=== PATIENT | male | born 1975 | race Caucasian/White ===

== ENCOUNTER → 2016-10-18 | Outpatient (CLI) | payer OTHER ==
--- NOTE | 2016-10-18 15:16 | RAD ---
Three-view cervical spine radiographs 10/18/2016 Clinical history: Neck pain which radiates down the left arm for several months. AP, lateral, swimmer's lateral and AP open mouth odontoid digital radiographs of the cervical spine were obtained. Minimal lateral curvature of the cervical spine is seen convex to the left. There is mild straightening of the normal cervical lordosis. Degenerative changes consisting of vertebral endplate sclerosis and minimal anterior and posterior vertebral body osteophyte formation are seen involving the C5-6 and C6-7 disc spaces. Mild disc space narrowing is seen at C5-C6. Mild degenerative changes are seen involving the uncovertebral and facet joints at these levels. No fracture or subluxation is seen. No prevertebral soft tissue swelling is noted. Impression: Mild degenerative changes are seen involving the lower cervical spine. No acute osseous abnormality is seen.
== END | disposition home or self-care (01) ==
LOC: DXRADRC 10:55
PROVIDERS: ATTEND Physician Assistant Medical
DX: M54.2 Cervicalgia (principal); M25.512 Pain in left shoulder
CPT/HCPCS: 72040

== ENCOUNTER → 2019-05-12 | Outpatient (CLI) | payer BC ==
[2019-05-12 09:29] LABS: BASO % 1 % (0-3); EOS # 0.2 x10^3/uL (0.0-0.7); EOS % 2 % (0-3); HEMATOCRIT 47.3 % (39.0-53.0); HEMOGLOBIN 16.1 g/dL (13.0-17.5); LYMPH # 1.4 x10^3/uL (1.0-4.8); LYMPH % 20 % (24-48); MEAN CORPUSCULAR HEMOGLOBIN 32 pg (25-35); MEAN CORPUSCULAR HGB CONC 34 g/dL (31-37); MEAN CORPUSCULAR VOLUME 95 fL (79-100); MONO # 0.5 x10^3/uL (0.0-1.1); MONO % 7 % (0-9); NEUT # 4.8 x10^3uL (1.8-7.7); NEUT % 70 % (31-73); PLATELET COUNT 243 x10^3/uL (140-400); RED CELL DISTRIBUTION WIDTH 13.9 % (11.5-14.5); WHITE BLOOD COUNT 6.9 x10^3/uL (4.0-11.0)
[2019-05-12 09:42] LABS: ALBUMIN 3.7 g/dL (3.4-5.0); CALCIUM 8.5 mg/dL (8.5-10.1); CREATININE 0.9 mg/dL (0.7-1.3); POTASSIUM 3.7 mmol/L (3.5-5.1); TOTAL BILIRUBIN 0.4 mg/dL (0.2-1.0); TOTAL PROTEIN 7.3 g/dL (6.4-8.2)
[2019-05-12 10:38] LABS: BACTERIA,URINE 0 /HPF (0-FEW); BILIRUBIN,URINE NEG (NEG); CLARITY,URINE HAZY; COLOR,URINE YELLOW; GLUCOSE,URINE NEG (NEG); NITRITE,URINE NEG (NEG); RBC,URINE RARE /HPF (0-2); UROBILINOGEN,URINE 0.2 mg/dL (0.2 mg/dL); WBC,URINE 0 /HPF (0-4)
[2019-05-12 10:39] LABS: AMORPHOUS SEDIMENT,UR PRESENT /HPF
[2019-05-12 11:08] LABS: TESTOSTERONE TOTAL 652 ng/dL (264-916)
[2019-05-12 12:04] LABS: FREE T4 0.83 ng/dL (0.76-1.46); THYROID STIM HORMONE (TSH) 2.878 uIU/mL (0.358-3.740)
== END | disposition home or self-care (01) ==
LOC: LAB 08:06
PROVIDERS: ATTEND Physician Assistant Medical
DX: G47.19 Other hypersomnia (principal); I10 Essential (primary) hypertension
CPT/HCPCS: 36415; 80053; 80061; 81001; 84403; 84439; 84443; 84481; 85025